=== PATIENT | male | born 1990 | race Two or more races ===

== ENCOUNTER 2017-11-08 15:00 | Emergency (ER) | payer SELFPAY ==
[~2017-11-08] VITALS: Ht 170.2 cm; Wt 70.0 kg
[2017-11-08] MEDS ORDERED: KETOROLAC 15MG/ML VIAL IM ONE (19:15)
[2017-11-08 19:34] VITALS: BP 133/84
== END 2017-11-08 19:35 | disposition home or self-care (01) ==
LOC: ER 15:45
DX: S09.93XA Unspecified injury of face, initial encounter (principal); S00.33XA Contusion of nose, initial encounter; E80.4 Gilbert syndrome; Y08.89XA Assault by other specified means, initial encounter; Y93.89 Activity, other specified; Y92.89 Other specified places as the place of occurrence of the external cause; Y99.8 Other external cause status
CPT/HCPCS: 99283; J1885